=== PATIENT | male | born 1960 | race American Indian/Alaskan Native ===

== ENCOUNTER 2020-07-10 08:38 | Outpatient (CLI) | payer OTHER ==
--- NOTE | 2020-07-10 09:28 | XRay Report ---
CERVICAL SPINE 4 VIEWS INDICATION / CLINICAL INFORMATION: Neck pain. COMPARISON: None available. FINDINGS: VERTEBRAE: No fracture. No significant malalignment. 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 The C7 anterior screws are both fractured. PREVERTEBRAL SOFT TISSUES:No significant abnormality. ADDITIONAL FINDINGS: None. IMPRESSION: 1. No acute fracture. 2. C6-7 ACDF described above with 2 fractured C7 screws Signer Name: Timmy Cronin MD Signed: 07/10/2020 9:24 AM Workstation Name: [id number]
--- NOTE | 2020-07-10 09:29 | XRay Report ---
LUMBAR SPINE 3 VIEWS INDICATION / CLINICAL INFORMATION: Low back pain. COMPARISON: None available. FINDINGS: VERTEBRAE: No fracture. No significant malalignment. DISC SPACES:No significant abnormality. FACET JOINTS:Moderate facet degenerative disease L5-S1 ADDITIONAL FINDINGS: None. IMPRESSION: 1. No significant abnormality. Signer Name: Timmy Cronin MD Signed: 07/10/2020 9:24 AM Workstation Name: [email or web address]
== END 2020-07-10 08:39 | disposition home or self-care (01) ==
LOC: XRAY 08:38
PROVIDERS: ATTEND Internal Medicine
DX: M47.816 Spondylosis without myelopathy or radiculopathy, lumbar region (principal); M50.31 Other cervical disc degeneration, high cervical region
CPT/HCPCS: 72040; 72100